=== PATIENT | male | born 1960 | race American Indian/Alaskan Native ===

== ENCOUNTER 2017-02-24 09:43 | Emergency (ER) | payer SELFPAY ==
[2017-02-24] MEDS ORDERED: CATAPRES ONE (10:57)
--- NOTE | 2017-02-24 10:58 | Emergency Department Report ---
HPI - General Chief Complaint: Extremity Injury, Lower Time Seen by Provider: 02/24/17 10:48 - HPI HPI: Room 5 The patient is a 57-year-old male presenting with a chief complaint of left ankle pain. Patient states 5 days ago slipped and fell down stairs. Patient denies loss of consciousness. Patient states he injured his left ankle. The patient states that his ankle began to swell but he soaked it in Epsom salt. The patient states swelling decreased but the pain persists. The patient gives his pain a score of 9/10 Location: Left ankle Duration: 5 Days Quality: Pain Severity: 9/10 Modifying factors: [see above] Context: [see above] Mode of transportation: The patient drove himself to the emergency department and there are no visitors present ED Past Medical Hx - Past Medical History Previous Medical History?: Yes Hx Hypertension: Yes - Surgical History Past Surgical History?: No - Family History Family history: no significant - Social History Smoking Status: Current Every Day Smoker (one pack per day) Substance Use Type: Alcohol - Medications Home Medications: Home Medications Medication Instructions Recorded Confirmed Last Taken Type Cyclobenzaprine [Flexeril] 10 mg PO TID PRN #14 tablet 02/24/17 Unknown Rx HYDROcodone/APAP 5-325 [[place] 1 - 2 each PO Q6HR PRN #30 tablet 02/24/17 Unknown Rx 5/325] Ibuprofen [Motrin 800 MG tab] 800 mg PO Q8HR PRN #20 tablet 02/24/17 Unknown Rx ED Review of Systems ROS: Stated complaint: LT ANKLE AND FOOT PAIN W/SWELLING Other details as noted in HPI Comment: All other systems reviewed and negative Constitutional: denies: chills, fever Eyes: denies: eye pain, eye discharge, vision change ENT: denies: ear pain, throat pain Respiratory: denies: cough, shortness of breath, wheezing Cardiovascular: denies: chest pain, palpitations Endocrine: no symptoms reported Gastrointestinal: denies: abdominal pain, nausea, diarrhea Genitourinary: denies: urgency, dysuria Musculoskeletal: arthralgia Skin: denies: rash, lesions Neurological: denies: headache, weakness, paresthesias Psychiatric: denies: anxiety, depression Hematological/Lymphatic: denies: easy bleeding, easy bruising Physical Exam - Physical Exam Vital Signs: Vital Signs 02/24/17 09:46 Temperature 98.5 F Pulse Rate 76 Respiratory 20 Rate Blood Pressure 185/129 O2 Sat by Pulse 98 Oximetry Physical Exam: GENERAL: The patient is well-developed well-nourished male lying on stretcher not appearing to be in acute distress. [] HEENT: Normocephalic. Atraumatic. Extraocular motions are intact. Patient has moist mucous membranes. NECK: Supple. Trachea midline CHEST/LUNGS: Clear to auscultation. There is no respiratory distress noted. HEART/CARDIOVASCULAR: Regular. There is no tachycardia. There is no gallop rub or murmur. ABDOMEN: Abdomen is soft, nontender. Patient has normal bowel sounds. There is no abdominal distention. SKIN: There is no rash. There is no diaphoresis. NEURO: The patient is awake, alert, and oriented. The patient is cooperative. The patient has no focal neurologic deficits. The patient has normal speech MUSCULOSKELETAL: There is tenderness to palpation to the medial and lateral malleoli of the left ankle. ED Course Vital Signs 02/24/17 09:46 Temperature 98.5 F Pulse Rate 76 Respiratory 20 Rate Blood Pressure 185/129 O2 Sat by Pulse 98 Oximetry ED Medical Decision Making - Radiology Data Radiology results: image reviewed (left ankle x-ray) interpreted by me: Left ankle [id number] displaced fracture of the distal fibula - Differential Diagnosis fibular fracture, ankle sprain Critical care attestation.: If time is entered above; I have spent that time in minutes in the direct care of this critically ill patient, excluding procedure time. ED Disposition Clinical Impression: Closed fracture of left distal fibula Disposition: DISCHARGED TO HOME OR SELFCARE Is pt being admited?: No Does the pt Need Aspirin: No Condition: Stable Instructions: Ankle Fracture (ED) Additional Instructions: Return to the emergency department immediately should you develop worsening symptoms, fever, inability to tolerate food or liquid or any other concerns. Prescriptions: Cyclobenzaprine [Flexeril] 10 mg PO TID PRN #14 tablet PRN Reason: Muscle Spasm HYDROcodone/APAP 5-325 [[place] 5/325] 1 - 2 each PO Q6HR PRN #30 tablet PRN Reason: Pain Ibuprofen [Motrin 800 MG tab] 800 mg PO Q8HR PRN #20 tablet PRN Reason: Pain Referrals: PRIMARY CARE, [Primary Care Provider] - 3-5 Days JOSE READ MD [Staff Physician] - 3-5 Days (Dr. Read is an orthopedic surgeon. Please follow up with him for further evaluation) Time of Disposition: 11:00
[2017-02-24] MEDS ORDERED: CATAPRES PO ONE (11:00)
--- NOTE | 2017-02-24 11:05 | XRay Report ---
Left ankle 3 views: History: Status post fall with left ankle pain and swelling. Findings: There is nondisplaced fracture noted at the distal left fibula just above the level of the lateral malleolus. No dislocation of the ankle. Mild arthritic changes ankle joint. Arthritic changes also noted of the dorsal aspect of midfoot. Spur identified the posterior superior and posterior inferior aspect of the calcaneum. Impression: Spiral nondisplaced fracture distal left fibula. Arthritic changes as detailed above.
[2017-02-24 11:23] VITALS: BP 181/101
== END 2017-02-24 11:21 | disposition home or self-care (01) ==
LOC: ED 09:43
DX: S82.832A Other fracture of upper and lower end of left fibula, initial encounter for closed fracture (principal); I10 Essential (primary) hypertension; F17.200 Nicotine dependence, unspecified, uncomplicated; W10.9XXA Fall (on) (from) unspecified stairs and steps, initial encounter; Y93.89 Activity, other specified; Y99.8 Other external cause status; Y92.89 Other specified places as the place of occurrence of the external cause

== ENCOUNTER 2017-03-16 23:55 | Emergency (ER) | payer SELFPAY ==
[2017-03-17] MEDS ORDERED: NORVASC ONE (00:26)
[2017-03-17] MEDS ORDERED: NORVASC PO ONE (00:29)
[2017-03-17] MEDS ORDERED: PEPCID ONE (02:33)
[2017-03-17] MEDS ORDERED: CATAPRES ONE (02:34)
[2017-03-17] MEDS ORDERED: BENADRYL PO ONE ×2 (02:34→02:39)
[2017-03-17] MEDS ORDERED: PEPCID PO ONE (02:38)
[2017-03-17] MEDS ORDERED: CATAPRES PO ONE (02:39)
[2017-03-17 04:52] VITALS: BP 134/95
--- NOTE | 2017-03-17 06:38 | Emergency Department Report ---
ED Rash HPI - HPI Chief Complaint: Skin Rash Stated Complaint: RASH Time Seen by Provider: 03/17/17 06:24 Duration: 5 Days Location: Upper Extremities, Lower Extremities Suspected Cause: Unknown Rash Symptoms: Yes Itching, No Facial Swelling, No Tongue/Oral Swelling, No Breathing Difficulties, No Choking Sensation, No Wheezing/Dyspnea, No Peeling, No Blistering, No Fever, No Lightheaded, No Malaise, No Myalgias Severity: mild Other History: 57-year-old male past medical history hypertension, broken left foot presents with complaint of itchy mild rash and excoriations to upper and lower extremities for approximately one week. Patient denies any fevers no chills no nausea no vomiting denies any new cosmetic use states he hasn't used any new medicines in several weeks. Patient pointing to small erythematous round circular lesions on forearms and thighs. Appeared to be bug bites. Patient unsure states he has not noticed any bugs specifically on his skin. ED Review of Systems ROS: Stated complaint: RASH Other details as noted in HPI Constitutional: denies: chills, fever Eyes: denies: eye pain, eye discharge, vision change ENT: denies: ear pain, throat pain Respiratory: denies: cough, shortness of breath, wheezing Cardiovascular: denies: chest pain, palpitations Endocrine: no symptoms reported Gastrointestinal: denies: abdominal pain, nausea, diarrhea Genitourinary: denies: urgency, dysuria Musculoskeletal: denies: back pain, joint swelling, arthralgia Skin: lesions. denies: rash Neurological: denies: headache, weakness, paresthesias Psychiatric: denies: anxiety, depression Hematological/Lymphatic: denies: easy bleeding, easy bruising ED Past Medical Hx - Past Medical History Previous Medical History?: Yes Hx Hypertension: Yes - Social History Smoking Status: Current Every Day Smoker - Medications Home Medications: Home Medications Medication Instructions Recorded Confirmed Last Taken Type Cyclobenzaprine [Flexeril] 10 mg PO TID PRN #14 tablet 02/24/17 Unknown Rx HYDROcodone/APAP 5-325 [[place] 1 - 2 each PO Q6HR PRN #30 tablet 02/24/17 Unknown Rx 5/325] Ibuprofen [Motrin 800 MG tab] 800 mg PO Q8HR PRN #20 tablet 02/24/17 Unknown Rx Hydrocortisone 28.4 gm TP BID #1 cream..g. 03/17/17 Unknown Rx Ibuprofen [Motrin] 400 mg PO Q8H PRN #20 tablet 03/17/17 Unknown Rx Mupirocin [Bactroban 2% CREAM] 1 applicatio TP TID #1 cream 03/17/17 Unknown Rx diphenhydrAMINE [Benadryl CAP] 25 mg PO Q8H PRN #1 bottle 03/17/17 Unknown Rx Rash Exam - Exam General: Vital signs noted. No distress. Alert and acting appropriately. HEENT: No Periorbital Edema, No Conjuctival Injection, No Chemosis, No Perioral Edema, No Tongue Edema, No Uvular Edema, No Compromised Airway, No Drooling Lungs: Yes Good Air Exchange (Normal Breath Sounds), No Wheezes, No Ronchi, No Stridor, No Cough, No Labored Respirations, No Retractions, No Use of Accessory Muscles, No Other Abnormal Lung Sounds Heart: Yes Regular, No Murmur Skin: Yes Excoriations, No Urticarial Rash, No Maculopapular Rash, No Morbilliform rash, No Bulla(e), No Weeping, No Tenderness, No Erythema, No Edema , No Encrustations, No Other (small bug bite like lesions on bilateral upper thighs and forearms.) Other: Positive: Abdomen Normal, Neurologic Normal, Musculoskeletal Normal ED Course Vital Signs 03/17/17 03/17/17 03/17/17 00:15 00:30 02:19 Temperature 98.7 F 98.6 F Pulse Rate 96 H 96 H 72 Respiratory 18 20 Rate Blood Pressure 184/133 170/120 Blood Pressure 168/111 [Left] O2 Sat by Pulse 98 98 Oximetry 03/17/17 03/17/17 03/17/17 02:40 03:25 04:51 Temperature Pulse Rate 72 67 63 Respiratory 20 20 Rate Blood Pressure 168/111 Blood Pressure 154/110 134/95 [Left] O2 Sat by Pulse 98 97 Oximetry ED Medical Decision Making - Medical Decision Making A/P: Bug bites, HTN 1- lesions are characteristic of possible bug bites, unclear which sort of bug may have bitten him possible bed bugs versus ant bites. No visible cellulitis 2- Benadryl when necessary, Bactroban cream, Motrin when necessary 3- I advised patient to check+wash his bedding and clothingand contact an rn wom[facility] health. I examined the patient and found no live bugs on him or his clothing at the time of examination. 4- no linear lesions to suggest scabies 5- patient states he takes lisinopril on a regular basis for his blood pressure but stopped taking it 4 days ago because he states he was drinking alcohol at a libertarian. Patient states that he will restart his lisinopril today. Patient has been on lisinopril for years with no adverse reactions or urticarial reactions in the past. States he will restart his lisinopril and states he will follow- up with his primary doctor Critical care attestation.: If time is entered above; I have spent that time in minutes in the direct care of this critically ill patient, excluding procedure time. ED Disposition Clinical Impression: Bug bites Qualifiers: Encounter type: initial encounter Qualified Code(s): W57.XXXA - Bitten or stung by nonvenomous insect and other nonvenomous arthropods, initial encounter Disposition: DC-01 TO HOME OR SELFCARE Is pt being admited?: No Does the pt Need Aspirin: No Condition: Stable Instructions: Insect Bite or Sting (ED), Itchy Skin (ED) Prescriptions: diphenhydrAMINE [Benadryl CAP] 25 mg PO Q8H PRN #1 bottle PRN Reason: Itching Hydrocortisone 28.4 gm TP BID #1 cream..g. Ibuprofen [Motrin] 400 mg PO Q8H PRN #20 tablet PRN Reason: Itching Mupirocin [Bactroban 2% CREAM] 1 applicatio TP TID #1 cream Referrals: [facility] [Outside] - 3-5 Days Forms: Work/School Release Form(ED) Time of Disposition: 06:40
== END 2017-03-17 06:49 | disposition home or self-care (01) ==
LOC: ED 23:55
DX: S40.862A Insect bite (nonvenomous) of left upper arm, initial encounter (principal); S40.861A Insect bite (nonvenomous) of right upper arm, initial encounter; S70.362A Insect bite (nonvenomous), left thigh, initial encounter; S70.361A Insect bite (nonvenomous), right thigh, initial encounter; I10 Essential (primary) hypertension; F17.200 Nicotine dependence, unspecified, uncomplicated; W57.XXXA Bitten or stung by nonvenomous insect and other nonvenomous arthropods, initial encounter; Y93.89 Activity, other specified; Y99.8 Other external cause status; Y92.89 Other specified places as the place of occurrence of the external cause
CPT/HCPCS: 99282

== ENCOUNTER 2021-12-18 19:43 | Emergency (ER) | payer SELFPAY ==
--- NOTE | 2021-12-19 10:56 | Electrocardiograph Report ---
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
== END 2021-12-19 05:37 | disposition left against medical advice (07) ==
LOC: ED 19:43
DX: M54.9 Dorsalgia, unspecified (principal); Z53.21 Procedure and treatment not carried out due to patient leaving prior to being seen by health care provider
CPT/HCPCS: 93005